=== PATIENT | female | born 1970 | race Caucasian/White ===

== ENCOUNTER 2020-01-29 13:04 | Emergency (ER) | payer OTHER ==
[2020-01-29 13:39] VITALS: O2SAT 97
[2020-01-29] MEDS ORDERED: Sodium Chloride 0.9% 1000 ML 1,000 ML IV SCH (13:45)
[2020-01-29 13:58] LABS: A-aADO2 4; ABG HEMOGLOBIN 15.3; ABG POTASSIUM 4.1 (3.5-5.1); ARTERIAL BLD GAS O2 SATURATION 98.3 % (95-100); ARTERIAL BLOOD GAS BASE EXCESS 6.9 (-2.0-2.0); ARTERIAL BLOOD GAS FIO2 21 %; ARTERIAL BLOOD GAS PCO2 46 mmHg (35-45); ARTERIAL BLOOD GAS PO2 88 mmHg (75-100); ARTERIAL BLOOD GAS pH 7.45 (7.35-7.45); HGB O2 SAT 90.4 g/dF (94-100); Lactic Acid 0.8 (0.4-2.0); Methhemoglobin 1.1 % (1.4-1.5); paO2 pAO1 0.96
[2020-01-29 13:59] LABS: ABG SITE RIGHT BRACHIAL
[2020-01-29] MEDS ORDERED: Sodium Chloride 0.9% 1000 ML 1,000 ML ONE (14:11)
--- NOTE | 2020-01-29 14:11 | ERPHSYRPT ---
- History of Present Illness Time Seen by Provider: 01/29/20 14:09 Source: patient Exam Limitations: no limitations Patient Subjective Stated Complaint: Cough Triage Nursing Assessment: , Patient ambulated back to ED and transferred self to bed. Patient A+O X3. Patient's skin pink, warm and dry. Patient complains of cough, increased SOB, body aches for two weeks. Patient has tested Negative for Covid in the past two weeks, but her is positive. Lungs clear a/p sheryl. Patient complains of non productive intermittent cough at times. Physician History: Patient complains of cough, increased SOB, body aches for two weeks. Patient has tested Negative for Covid in the past two weeks, but her is positive. Lungs clear a/p sheryl. Patient complains of non productive intermittent cough at times. Timing/Duration: week(s) Cough Quality/Degree: dry cough Associated Symptoms: shortness of breath, sore throat Allergies/Adverse Reactions: No Known Drug Allergies Allergy (Unverified 01/29/20 13:29) Hx Influenza Vaccination/Date Given: No Hx Pneumococcal Vaccination/Date Given: No Immunizations Up to Date: Yes Travel Risk - International Travel Have you traveled outside of the country in past 3 weeks: No - Coronavirus Screening Are you exhibiting any of the following symptoms?: Yes Symptoms: Cough: New Onset, Shortness of Breath, Headaches/Body Aches/Fatigue Close contact with a COVID-19 positive Pt in past 14-21 Days: Yes - Review of Systems Constitutional: Malaise Ears, Nose, & Throat: Throat Pain Respiratory: Cough Cardiac: No Symptoms Abdominal/Gastrointestinal: No Symptoms Genitourinary Symptoms: No Symptoms Musculoskeletal: No Symptoms Neurological: No Symptoms Psychological: No Symptoms Endocrine: No Symptoms - Past Medical History Pertinent Past Medical History: Yes Neurological History: No Pertinent History ENT History: No Pertinent History Female Reproductive Disorders: Breast Cancer - Past Surgical History Past Surgical History: Yes Neuro Surgical History: No Pertinent History Cardiac: No Pertinent History Respiratory: No Pertinent History Gastrointestinal: No Pertinent History Genitourinary: No Pertinent History Musculoskeletal: No Pertinent History Female Surgical History: Hysterectomy, Lumpectomy Other Surgical History: bladder sling - Social History Smoking Status: Current every day smoker How long have you smoked: years Exposure to second hand smoke: Yes Drug Use: marijuana Patient Lives Alone: No - Female History Hx Last Menstrual Period: hysterctomy Hx Now: No - Nursing Vital Signs Nursing Vital Signs: Initial Vital Signs Temperature 98.7 F 01/29/20 13:31 Pulse Rate 98 H 01/29/20 13:31 Respiratory Rate 18 01/29/20 13:31 Blood Pressure 163/113 01/29/20 13:31 O2 Sat by Pulse Oximetry 97 01/29/20 13:31 Pain Scale Pain Intensity 6 - Physical Exam General Appearance: no apparent distress, alert Eye Exam: PERRL/EOMI, eyes nml inspection Ears, Nose, Throat Exam: normal ENT inspection, TMs normal, pharynx normal, moist mucous membranes Neck Exam: normal inspection, non-tender, supple, full range of motion Respiratory Exam: normal breath sounds, lungs clear, No respiratory distress Cardiovascular Exam: regular rate/rhythm, normal heart sounds Gastrointestinal/Abdomen Exam: soft, No tenderness Back Exam: normal inspection, No CVA tenderness, No vertebral tenderness Extremity Exam: normal inspection, normal range of motion Neurologic Exam: alert, oriented x 3, cooperative, normal mood/affect, sensation nml, No motor deficits Skin Exam: normal color, warm, dry, No rash Lymphatic Exam: No adenopathy SpO2: 97 - Course Nursing assessment & vital signs reviewed: Yes Ordered Tests: Active Orders 24 hr Category Date Time Status EKG-ER Only STAT Care 01/29/20 13:36 Active IV Insertion STAT Care 01/29/20 14:07 Active Oxygen-ED Only Nasal Cannula 2 lpm Care 01/29/20 13:36 Active Pulse Oximetry (ED) STAT Care 01/29/20 14:08 Active CHEST 1 VIEW (PORTABLE) Stat Exams 01/29/20 14:02 Taken ARTERIAL BLOOD GASES Stat Lab 01/29/20 13:36 Completed CBC W DIFF Stat Lab 01/29/20 13:36 Completed CMP Stat Lab 01/29/20 13:36 Completed D-DIMER QUANTITATIVE Stat Lab 01/29/20 13:36 Completed Lactic Acid Stat Lab 01/29/20 13:36 Completed MAGNESIUM Stat Lab 01/29/20 13:36 Completed Medication Summary Generic Name Dose Route Start Last Admin Trade Name Freq PRN Reason Stop Dose Admin Sodium Chloride 1,000 mls @ 100 mls/hr 01/29/20 13:45 01/29/20 14:12 Sodium Chloride 0.9% 1000 Ml IV 11/17/20 13:44 100 mls/hr .Q10H ALEXI Administration Lab/Rad Data: Laboratory Result Diagrams 01/29/20 13:36 01/29/20 13:36 Laboratory Results 01/29/20 01/29/20 01/29/20 Range/Units 15:00 13:36 13:36 WBC (4.0-10.5) K/mm3 RBC (4.1-5.4) M/mm3 Hgb (12.0-16.0) gm/dl Hct (35-47) % MCV (78-100) fl MCH (26-32) pg MCHC (32-36) g/dl RDW (11.5-14.0) % Plt Count (150-450) K/mm3 MPV (7.5-11.0) fl Gran % (36.0-66.0) % Eos # (Auto) (0-0.5) Absolute Lymphs (auto) (1.0-4.6) Absolute Monos (auto) (0.0-1.3) Lymphocytes % (24.0-44.0) % Monocytes % (0.0-12.0) % Eosinophils % (0.00-5.0) % Basophils % (0.0-0.4) % Absolute Granulocytes (1.4-6.9) Basophils # (0-0.4) D-Dimer 281 (215-500) ng/mL Puncture Site pCO2 (35-45) mmHg pO2 (75-100) mmHg Base Excess (-2.0-2.0) O2 Saturation (94-100) g/dF ABG pH (7.35-7.45) ABG HCO3 (22-28) ABG O2 Sat (Measured) (95-100) % Khris Test A-a Gradient a/A Ratio Hemoglobin Carboxyhemoglobin (0.0-6.9) % THgb Methemoglobin (1.4-1.5) % Potassium 3.9 (3.5-5.1) Temperature C POC O2 Flow Rate % Sodium 134 L (137-145) mmol/L Chloride 103 (98-107) mmol/L Carbon Dioxide 27 (22-30) mmol/L Anion Gap 8.1 (5-15) MEQ/L BUN 13 (7-17) mg/dL Creatinine 0.71 (0.52-1.04) mg/dL Estimated GFR > 60.0 ML/MIN Glucose 98 (74-106) mg/dL Lactic Acid (0.4-2.0) Calcium 9.1 (8.4-10.2) mg/dL Magnesium 2.1 (1.6-2.3) mg/dL Total Bilirubin 0.30 (0.2-1.3) mg/dL AST 23 (14-36) U/L ALT 20 (0-35) U/L Alkaline Phosphatase 66 (38-126) U/L Serum Total Protein 6.9 (6.3-8.2) g/dL Albumin 4.0 (3.5-5.0) g/dL Influenza Type A Ag NEGATIVE (NEGATIVE) Influenza Type B Ag NEGATIVE (NEGATIVE) RSV (PCR) NEGATIVE (Negative) 01/29/20 01/29/20 Range/Units 13:36 13:36 WBC 9.0 (4.0-10.5) K/mm3 RBC 4.59 (4.1-5.4) M/mm3 Hgb 14.2 (12.0-16.0) gm/dl Hct 42.6 (35-47) % MCV 92.8 (78-100) fl MCH 30.9 (26-32) pg MCHC 33.3 (32-36) g/dl RDW 13.2 (11.5-14.0) % Plt Count 213 (150-450) K/mm3 MPV 9.6 (7.5-11.0) fl Gran % 66.2 H (36.0-66.0) % Eos # (Auto) 0.21 (0-0.5) Absolute Lymphs (auto) 2.15 (1.0-4.6) Absolute Monos (auto) 0.65 (0.0-1.3) Lymphocytes % 23.9 L (24.0-44.0) % Monocytes % 7.2 (0.0-12.0) % Eosinophils % 2.3 (0.00-5.0) % Basophils % 0.4 (0.0-0.4) % Absolute Granulocytes 5.94 (1.4-6.9) Basophils # 0.04 (0-0.4) D-Dimer (215-500) ng/mL Puncture Site RIGHT BRACHIAL pCO2 46 H (35-45) mmHg pO2 88 (75-100) mmHg Base Excess 6.9 H (-2.0-2.0) O2 Saturation 90.4 L (94-100) g/dF ABG pH 7.45 (7.35-7.45) ABG HCO3 32.0 H* (22-28) ABG O2 Sat (Measured) 98.3 (95-100) % Khris Test NOT APPLICABLE A-a Gradient 4 a/A Ratio 0.96 Hemoglobin 15.3 Carboxyhemoglobin 7.0 H* (0.0-6.9) % THgb Methemoglobin 1.1 L (1.4-1.5) % Potassium 4.1 (3.5-5.1) Temperature 37.0 C POC O2 Flow Rate 21 % Sodium (137-145) mmol/L Chloride (98-107) mmol/L Carbon Dioxide (22-30) mmol/L Anion Gap (5-15) MEQ/L BUN (7-17) mg/dL Creatinine (0.52-1.04) mg/dL Estimated GFR ML/MIN Glucose (74-106) mg/dL Lactic Acid 0.8 (0.4-2.0) Calcium (8.4-10.2) mg/dL Magnesium (1.6-2.3) mg/dL Total Bilirubin (0.2-1.3) mg/dL AST (14-36) U/L ALT (0-35) U/L Alkaline Phosphatase (38-126) U/L Serum Total Protein (6.3-8.2) g/dL Albumin (3.5-5.0) g/dL Influenza Type A Ag (NEGATIVE) Influenza Type B Ag (NEGATIVE) RSV (PCR) (Negative) - Progress Progress: unchanged Air Movement: good Blood Culture(s) Obtained: No Antibiotics given: No Counseled pt/family regarding: lab results, diagnosis, need for follow-up, rad results - Departure Departure Disposition: Home Clinical Impression: Post viral syndrome, Post-viral cough syndrome Condition: Stable Critical Care Time: No Referrals: JESSICA SHERIDAN [Primary Care Provider] - Instructions: Cough, Adult (DC) Additional Instructions: Discharge/Care Plan ANNE MARIE BERTRAND was seen on 01/29/20 in the Emergency Room. The patient was counseled regarding Diagnosis,Lab results, Imaging studies, need for follow up and when to return to the Emergency Room. Prescriptions given: Discharge Note I have spoken with the patient and/or caregivers. I have explained the patient's condition, diagnosis and treatment plan based on the information available to me at this time. I have answered the patient's and/or caregiver's questions and addressed any concerns. The patient and/or caregivers have as good understanding of the patient's diagnosis, condition and treatment plan as can be expected at this point. The vital signs have been stable. The patient's condition is stable and appropriate for discharge from the emergency department. The patient will pursue further outpatient evaluation with the primary care physician or other designated or consulting physician as outlined in the discharge instructions. The patient and/or caregivers are agreeable to this plan of care and follow-up instructions have been explained in detail. The patient and/or caregivers have received these instruction. The patient/and or caregivers are aware that any significant change in condition or worsening of symptoms should prompt an immediate return to this or the closest emergency department or call 911. ANNE MARIE BERTRAND was seen on 01/29/20 n the Emergency Room. At that time you were treated for an emergent condition, during your visit Laboratory, Radiology and/or other procedures may have been ordered. It is very important that you follow-up with your Primary Care Physician JESSICA SHERIDAN within the next 24-48 hours to review your Emergency Room visit and the final results of testing that was ordered. Some test results such as Urine Cultures, Blood Cultures, and other cultures if ordered will not be finalized for 24-48 hours. If you do not have a Primary Care Provider please call the medical records d kristyn at [phone] ext [phone] to obtain a copy of your results or you may sign into our patient portal to obtain these results by visiting us @ [email or web address] and completing the following steps: 1. Click on the Patient Portal link 2. Click the Patient Self Enrollment Link to complete the enrollment form and entering your 3. Once the enrollment form is completed you will receive an email with a temporary ID and password at the email address you provided. 4. Next choose a user name and password. Your user name must be at least 4 characters long and your password must be at least 4 characters long. 5. Choose a security question from the list and provide your answer to the question. If you already have signed into the Health Portal you may access your Health Care Information 03/11 by the following steps: 1. Login to our website @ [email or web address] 2. Enter your original user name and password. FAQS The [facility] Portal is an online tool that contains your Lab Results, Radiology Reports, Visit History, Discharge Instructions and Health Summary Lab and Radiology Results will not be available for 72 hours on the portal. The Portal is a secure site, passwords are encryted and URLs are re-written so they cannot be copied and pasted. You and authorized family members are the only ones who can access your Portal. Also there is a timeout feature that protects your information if you leave the Portal page open. If you have technical difficulty please use the Contact Us link on the page this will allow you to submit any questions you have regarding the Portal or you may contact the Medical Record Department at [phone]. Prescriptions: Prednisone 5 mg [Deltasone 5 mg] 5 mg PO BID #30 tablet
[2020-01-29 14:45] LABS: Absolute Neutrophil Ct (ANC) 5.94 (1.4-6.9); BASOPHIL % 0.4 % (0.0-0.4); Basophil (Absolute #) 0.04 (0-0.4); Eosinophil % 2.3 % (0.00-5.0); Eosinophil (Absolute #) 0.21 (0-0.5); Hematocrit 42.6 % (35-47); Hemoglobin 14.2 gm/dl (12.0-16.0); Lymphocyte (Absolute #) 2.15 (1.0-4.6); Lymphocytes % 23.9 % (24.0-44.0); Mean Cell Volume 92.8 fl (78-100); Mean Corpuscular Hemoglobin 30.9 pg (26-32); Mean Corpuscular Hgb Concent. 33.3 g/dl (32-36); Mean Platelet Volume 9.6 fl (7.5-11.0); Monocyte (Absolute #) 0.65 (0.0-1.3); Monocytes % 7.2 % (0.0-12.0); Neutrophil % 66.2 % (36.0-66.0); Platelet Count 213 K/mm3 (150-450); Red Blood Count 4.59 M/mm3 (4.1-5.4); Red Cell Distribution Width 13.2 % (11.5-14.0)
[2020-01-29 14:56] LABS: ALKALINE PHOSPHATASE 66 U/L (38-126); ANION GAP 8.1 MEQ/L (5-15); BLOOD UREA NITROGEN 13 mg/dL (7-17); CHLORIDE 103 mmol/L (98-107); Calcium 9.1 mg/dL (8.4-10.2); Carbon Dioxide 27 mmol/L (22-30); Creatinine 1 0.71 mg/dL (0.52-1.04); EST GLOMERULAR FILTRATION RATE > 60.0 ML/MIN; Glucose 98 mg/dL (74-106); MAGNESIUM 2.1 mg/dL (1.6-2.3); Potassium 3.9 mmol/L (3.5-5.1); SGOT/AST 23 U/L (14-36); SGPT/ALT 20 U/L (0-35); SODIUM 134 mmol/L (137-145); Total Protein 6.9 g/dL (6.3-8.2)
[2020-01-29 15:16] LABS: INFLUENZA A NEGATIVE (NEGATIVE); INFLUENZA B NEGATIVE (NEGATIVE); RESPIRATORY SYNCTIAL VIRUS NEGATIVE (Negative)
[2020-01-29 15:49] VITALS: BP 110/80; PULSE 75
--- NOTE | 2020-01-29 20:40 | XRAY ---
Indication: Cough. Covid 19 exposure. Comparison: December 02, 2017. Portable chest again hyperinflated with minimal lingula subsegmental atelectasis/scarring. No focal infiltrate, consolidation, or large effusion. Heart and mediastinal structures within normal limits. Bony thorax intact. Impression: Nonacute chest with chronic features. Impression:
== END 2020-01-29 15:51 | disposition home or self-care (01) ==
LOC: ED 13:04
DX: G93.3 Postviral and related fatigue syndromes (principal); R05 Cough
CPT/HCPCS: 36000; 36415; 36600; 71045; 80053; 82375; 82803; 83605; 83735; 85025; 85379; 87631; 93005; 94760; 96360; 96361; 99284

== ENCOUNTER 2021-08-18 11:59 | Emergency (ER) | payer OTHER ==
[2021-08-18] MEDS ORDERED: Sodium Chloride 0.9% 1000 ML 1,000 ML ONE (12:28)
--- NOTE | 2021-08-18 12:28 | ERPHSYRPT ---
- History of Present Illness Source: patient Exam Limitations: no limitations Patient Subjective Stated Complaint: SOB Triage Nursing Assessment: Patient ambulated back to ED and transferred self to bed. Patient A+O X 3. Patient's skin pink, warm and dry. Patient complains of SOB, cough, fever, and weakness since last thursday. Patient reports non productive cough. Lungs clear a/p sheryl. Patient reports desatting while working around. Physician History: 51 yo wf w cough x8days/fever/mild dyspnea/pleuritic chest pain/coryza. Pt has exposure to FluA. She was given Tessalon Perles per virtual visit. Timing/Duration: other (8 days) Cough Quality/Degree: dry cough Possible Cause: occasional episodes Modifying Factors: Improves With: coughing Associated Symptoms: fever, chills, cough, muscle aches Allergies/Adverse Reactions: No Known Drug Allergies Allergy (Verified 08/18/21 12:01) Home Medications: No Reportable Medications [No Reported Medications] 08/18/21 [History] Hx Influenza Vaccination/Date Given: No Hx Pneumococcal Vaccination/Date Given: No Immunizations Up to Date: No Travel Risk - International Travel Have you traveled outside of the country in past 3 weeks: No - Coronavirus Screening Are you exhibiting any of the following symptoms?: No Close contact with a COVID-19 positive Pt in past 14-21 Days: No - Vaccine Status Have you recieved a Covid-19 vaccination: Yes 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[employer] - Vaccination Dates Date of 2cond Vaccination (if applicable): July 2020 Comment: Booster March 2021 - Review of Systems Constitutional: No Symptoms, Fever, Chills, Fatigue Eyes: No Symptoms Ears, Nose, & Throat: No Symptoms, Nose Congestion, Nose Discharge Respiratory: No Symptoms, Cough, Dyspnea, Dyspnea on Exertion (DE LEON) Cardiac: No Symptoms Abdominal/Gastrointestinal: No Symptoms Genitourinary Symptoms: No Symptoms Musculoskeletal: No Symptoms, Arthralgias, Myalgias Skin: No Symptoms Neurological: No Symptoms Psychological: No Symptoms Endocrine: No Symptoms Hematologic/Lymphatic: No Symptoms Immunological/Allergic: No Symptoms - Past Medical History Pertinent Past Medical History: Yes Neurological History: No Pertinent History ENT History: No Pertinent History Cardiac History: Arrhythmia, High Cholesterol Respiratory History: No Pertinent History Endocrine Medical History: No Pertinent History Musculoskeletal History: Degenerative Disk Disease, Osteoarthritis, Other Female Reproductive Disorders: Breast Cancer Other Medical History: BREAST CANCER 2013, HX OF PLANTAR FASCITIS. OSTEOPENIA. SX HX: CERVICAL FUSION C5-7 2014, LUMPECTOMY LEFT 2012 - Past Surgical History Past Surgical History: Yes Neuro Surgical History: No Pertinent History Cardiac: No Pertinent History Respiratory: No Pertinent History Gastrointestinal: No Pertinent History Genitourinary: No Pertinent History Musculoskeletal: No Pertinent History Female Surgical History: Hysterectomy, Lumpectomy Other Surgical History: bladder sling - Social History Smoking Status: Current every day smoker How long have you smoked: years Exposure to second hand smoke: Yes Drug Use: marijuana Patient Lives Alone: No Significant Family History: no pertinent family hx - Nursing Vital Signs Nursing Vital Signs: Initial Vital Signs Temperature 97.6 F 08/18/21 12:02 Pulse Rate 89 08/18/21 12:02 Respiratory Rate 18 08/18/21 12:02 Blood Pressure 164/114 08/18/21 12:02 O2 Sat by Pulse Oximetry 96 08/18/21 12:02 Pain Scale Pain Intensity 0 Hypertensive - Physical Exam General Appearance: no apparent distress Eye Exam: PERRL/EOMI, eyes nml inspection Ears, Nose, Throat Exam: normal ENT inspection, TMs normal, pharynx normal, moist mucous membranes Neck Exam: normal inspection, non-tender, supple, full range of motion, No meningismus, No mass, No Brudzinski, No Kernig's Cardiovascular Exam: regular rate/rhythm, normal heart sounds, normal peripheral pulses, capillary refill <2 sec, No murmur Gastrointestinal/Abdomen Exam: soft, normal bowel sounds, No tenderness Back Exam: normal inspection, normal range of motion, CVA tenderness, vertebral tenderness Extremity Exam: normal inspection, normal range of motion Neurologic Exam: alert, oriented x 3, cooperative, 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, normal mood/affect, nml cerebellar function, nml station & gait, sensation nml Skin Exam: normal color, warm, dry Lymphatic Exam: No adenopathy SpO2 Interpretation: normal SpO2: 96 O2 Delivery: Room Air - Course Nursing assessment & vital signs reviewed: Yes - Radiology Exams Chest X-ray Interpretation: Interpreted by me (NAD per ER read) Ordered Tests: Active Orders 24 hr Category Date Time Status IV Insertion STAT Care 08/18/21 12:11 Completed CHEST 1 VIEW (PORTABLE) Stat Exams 08/18/21 12:11 Taken CBC W DIFF Stat Lab 08/18/21 12:05 Completed CMP Stat Lab 08/18/21 12:05 Completed Lactic Acid Stat Lab 08/18/21 12:12 Completed Manual Differential NC Stat Lab 08/18/21 12:05 Completed NT PRO BNP Stat Lab 08/18/21 12:05 Completed PROTIME WITH INR Stat Lab 08/18/21 12:05 Completed PTT Stat Lab 08/18/21 12:05 Completed TROPONIN Q3H Lab 08/18/21 12:05 Completed UA W/RFX CULTURE Stat Lab 08/18/21 13:18 Completed Medication Summary Discontinued Medications Generic Name Dose Route Start Last Admin Trade Name Freq PRN Reason Stop Dose Admin Sodium Chloride 1,000 mls @ 999 mls/hr 08/18/21 12:27 08/18/21 13:57 Sodium Chloride 0.9% 1000 Ml IV 08/18/21 13:27 Infused .Q1H1M STA Infusion Sodium Chloride Confirm 08/18/21 12:28 Sodium Chloride 0.9% 1000 Ml Administered 08/18/21 12:29 Dose 1,000 mls @ ud .ROUTE .STK-MED ONE Ketorolac Tromethamine 30 mg 08/18/21 13:25 08/18/21 13:27 Ketorolac Tromethamine 30 Mg/Ml Inj IV 08/18/21 13:26 30 mg STAT ONE Administration Ketorolac Tromethamine Confirm 08/18/21 13:26 Ketorolac Tromethamine 30 Mg/Ml Inj Administered 08/18/21 13:27 Dose 30 mg .ROUTE .STK-MED ONE Lab/Rad Data: Laboratory Result Diagrams 08/18/21 12:05 08/18/21 12:05 Laboratory Results 08/18/21 08/18/21 08/18/21 Range/Units 13:18 12:28 12:12 WBC (4.0-10.5) K/mm3 RBC (4.1-5.4) M/mm3 Hgb (12.0-16.0) gm/dl Hct (35-47) % MCV (78-100) fl MCH (26-32) pg MCHC (32-36) g/dl RDW (11.5-14.0) % Plt Count (150-450) K/mm3 MPV (7.5-11.0) fl Segmented Neutrophils (36.0-66.0) % Lymphocytes (Manual) (24-44) % Monocytes (Manual) (0.0-12.0) % Platelet Estimate (NORMAL) RBC Morphology PT (9.4-12.5) SECONDS INR (0.8-3.0) APTT (25.1-36.5) SECONDS Sodium (137-145) mmol/L Potassium (3.5-5.1) mmol/L Chloride (98-107) mmol/L Carbon Dioxide (22-30) mmol/L Anion Gap (5-15) MEQ/L BUN (7-17) mg/dL Creatinine (0.52-1.04) mg/dL Estimated GFR ML/MIN Glucose (74-106) mg/dL Lactic Acid 1.4 (0.4-2.0) Calcium (8.4-10.2) mg/dL Total Bilirubin (0.2-1.3) mg/dL AST (14-36) U/L ALT (0-35) U/L Alkaline Phosphatase (38-126) U/L Troponin I (0.000-0.034) ng/mL NT-Pro-B Natriuret Pep (0-900) pg/mL Serum Total Protein (6.3-8.2) g/dL Albumin (3.5-5.0) g/dL Urinalys Dipstick Clnc MAIN LAB Urine Color YELLOW (YELLOW) Urine Appearance CLEAR (CLEAR) Urine pH 6.0 (5-6) Ur Specific [place] 1.015 (1.005-1.025) POC Urine Protein Conf NEGATIVE (Negative) Urine Ketones NEGATIVE (NEGATIVE) Urine Nitrite NEGATIVE (NEGATIVE) Urine Bilirubin NEGATIVE (NEGATIVE) Urine Urobilinogen 0.2 (0-1) mg/dL Urine Leukocytes NEGATIVE (NEGATIVE) Urine WBC (Auto) 0-2 (0-5) /HPF Urine RBC (Auto) 0-2 (0-2) /HPF U Epithel Cells (Auto) RARE (FEW) /HPF Urine Bacteria (Auto) NONE (NEGATIVE) /HPF Urine RBC SMALL (0-5) Daniel/ul Unidentified Crystals 2-5 (NEGATIVE) /HPF Ur Culture Indicated? NO Urine Glucose NEGATIVE (NEGATIVE) mg/dL Influenza Type A Ag POSITIVE (NEGATIVE) Influenza Type B Ag NEGATIVE (NEGATIVE) RSV (PCR) NEGATIVE (Negative) SARS-CoV-2 (PCR) NEGATIVE (NEGATIVE) 08/18/21 08/18/21 08/18/21 Range/Units 12:05 12:05 12:05 WBC (4.0-10.5) K/mm3 RBC (4.1-5.4) M/mm3 Hgb (12.0-16.0) gm/dl Hct (35-47) % MCV (78-100) fl MCH (26-32) pg MCHC (32-36) g/dl RDW (11.5-14.0) % Plt Count (150-450) K/mm3 MPV (7.5-11.0) fl Segmented Neutrophils (36.0-66.0) % Lymphocytes (Manual) (24-44) % Monocytes (Manual) (0.0-12.0) % Platelet Estimate (NORMAL) RBC Morphology PT 10.8 (9.4-12.5) SECONDS INR 0.92 (0.8-3.0) APTT 27.8 (25.1-36.5) SECONDS Sodium 135 L (137-145) mmol/L Potassium 3.6 (3.5-5.1) mmol/L Chloride 100 (98-107) mmol/L Carbon Dioxide 27 (22-30) mmol/L Anion Gap 11.9 (5-15) MEQ/L BUN 11 (7-17) mg/dL Creatinine 0.63 (0.52-1.04) mg/dL Estimated GFR > 60.0 ML/MIN Glucose 96 (74-106) mg/dL Lactic Acid (0.4-2.0) Calcium 8.8 (8.4-10.2) mg/dL Total Bilirubin 0.80 (0.2-1.3) mg/dL AST 82 H (14-36) U/L ALT 94 H (0-35) U/L Alkaline Phosphatase 109 (38-126) U/L Troponin I < 0.012 (0.000-0.034) ng/mL NT-Pro-B Natriuret Pep 431 (0-900) pg/mL Serum Total Protein 7.3 (6.3-8.2) g/dL Albumin 4.2 (3.5-5.0) g/dL Urinalys Dipstick Clnc Urine Color (YELLOW) Urine Appearance (CLEAR) Urine pH (5-6) Ur Specific [place] (1.005-1.025) POC Urine Protein Conf (Negative) Urine Ketones (NEGATIVE) Urine Nitrite (NEGATIVE) Urine Bilirubin (NEGATIVE) Urine Urobilinogen (0-1) mg/dL Urine Leukocytes (NEGATIVE) Urine WBC (Auto) (0-5) /HPF Urine RBC (Auto) (0-2) /HPF U Epithel Cells (Auto) (FEW) /HPF Urine Bacteria (Auto) (NEGATIVE) /HPF Urine RBC (0-5) Daniel/ul Unidentified Crystals (NEGATIVE) /HPF Ur Culture Indicated? Urine Glucose (NEGATIVE) mg/dL Influenza Type A Ag (NEGATIVE) Influenza Type B Ag (NEGATIVE) RSV (PCR) (Negative) SARS-CoV-2 (PCR) (NEGATIVE) 08/18/21 Range/Units 12:05 WBC 7.6 (4.0-10.5) K/mm3 RBC 4.99 (4.1-5.4) M/mm3 Hgb 15.3 (12.0-16.0) gm/dl Hct 44.7 (35-47) % MCV 89.6 (78-100) fl MCH 30.7 (26-32) pg MCHC 34.2 (32-36) g/dl RDW 13.1 (11.5-14.0) % Plt Count 181 (150-450) K/mm3 MPV 10.6 (7.5-11.0) fl Segmented Neutrophils 71 H (36.0-66.0) % Lymphocytes (Manual) 21 L (24-44) % Monocytes (Manual) 8 (0.0-12.0) % Platelet Estimate NORMAL (NORMAL) RBC Morphology NORMAL PT (9.4-12.5) SECONDS INR (0.8-3.0) APTT (25.1-36.5) SECONDS Sodium (137-145) mmol/L Potassium (3.5-5.1) mmol/L Chloride (98-107) mmol/L Carbon Dioxide (22-30) mmol/L Anion Gap (5-15) MEQ/L BUN (7-17) mg/dL Creatinine (0.52-1.04) mg/dL Estimated GFR ML/MIN Glucose (74-106) mg/dL Lactic Acid (0.4-2.0) Calcium (8.4-10.2) mg/dL Total Bilirubin (0.2-1.3) mg/dL AST (14-36) U/L ALT (0-35) U/L Alkaline Phosphatase (38-126) U/L Troponin I (0.000-0.034) ng/mL NT-Pro-B Natriuret Pep (0-900) pg/mL Serum Total Protein (6.3-8.2) g/dL Albumin (3.5-5.0) g/dL Urinalys Dipstick Clnc Urine Color (YELLOW) Urine Appearance (CLEAR) Urine pH (5-6) Ur Specific [place] (1.005-1.025) POC Urine Protein Conf (Negative) Urine Ketones (NEGATIVE) Urine Nitrite (NEGATIVE) Urine Bilirubin (NEGATIVE) Urine Urobilinogen (0-1) mg/dL Urine Leukocytes (NEGATIVE) Urine WBC (Auto) (0-5) /HPF Urine RBC (Auto) (0-2) /HPF U Epithel Cells (Auto) (FEW) /HPF Urine Bacteria (Auto) (NEGATIVE) /HPF Urine RBC (0-5) Daniel/ul Unidentified Crystals (NEGATIVE) /HPF Ur Culture Indicated? Urine Glucose (NEGATIVE) mg/dL Influenza Type A Ag (NEGATIVE) Influenza Type B Ag (NEGATIVE) RSV (PCR) (Negative) SARS-CoV-2 (PCR) (NEGATIVE) - Progress Progress: improved Air Movement: good Progress Note: 08/18/21 13:34 1L NS bolus 30mg IV Toradol 08/18/21 18:01 Pt out of window for Tamiflu Counseled pt/family regarding: lab results, diagnosis, need for follow-up, rad results - Departure Departure Disposition: Home Clinical Impression: Influenza A Condition: Stable Critical Care Time: No Referrals: JESSICA SHERIDAN [Primary Care Provider] - Follow up/PCP as directed Instructions: Flu, Adult (DC) Additional Instructions: Rest/Fluids/Motrin/Tylenol Follow up with your family MD as needed
[2021-08-18] MEDS: Sodium Chloride 0.9% 1000 ML 1,000 ML IV STA (12:29)
[2021-08-18 12:35] LABS: Hematocrit 44.7 % (35-47); Hemoglobin 15.3 gm/dl (12.0-16.0); Mean Cell Volume 89.6 fl (78-100); Mean Corpuscular Hemoglobin 30.7 pg (26-32); Mean Corpuscular Hgb Concent. 34.2 g/dl (32-36); Mean Platelet Volume 10.6 fl (7.5-11.0); Platelet Count 181 K/mm3 (150-450); Red Blood Count 4.99 M/mm3 (4.1-5.4); Red Cell Distribution Width 13.1 % (11.5-14.0); White Blood Count 7.6 K/mm3 (4.0-10.5)
[2021-08-18 12:37] LABS: INR 0.92 (0.8-3.0); PROTIME 10.8 SECONDS (9.4-12.5)
[2021-08-18 12:40] LABS: PTT 27.8 SECONDS (25.1-36.5)
[2021-08-18 12:52] LABS: ALBUMIN 4.2 g/dL (3.5-5.0); ALKALINE PHOSPHATASE 109 U/L (38-126); ANION GAP 11.9 MEQ/L (5-15); BLOOD UREA NITROGEN 11 mg/dL (7-17); CHLORIDE 100 mmol/L (98-107); Calcium 8.8 mg/dL (8.4-10.2); Carbon Dioxide 27 mmol/L (22-30); Creatinine 1 0.63 mg/dL (0.52-1.04); EST GLOMERULAR FILTRATION RATE > 60.0 ML/MIN; Glucose 96 mg/dL (74-106); NT PRO BNP 431 pg/mL (0-900); Potassium 3.6 mmol/L (3.5-5.1); SGOT/AST 82 U/L (14-36); SGPT/ALT 94 U/L (0-35); SODIUM 135 mmol/L (137-145); Total Protein 7.3 g/dL (6.3-8.2)
[2021-08-18 13:13] LABS: INFLUENZA B NEGATIVE (NEGATIVE); RESPIRATORY SYNCTIAL VIRUS NEGATIVE (Negative); SARS-CoV-2 Xpert Express NEGATIVE (NEGATIVE)
[2021-08-18 13:18] LABS: INFLUENZA A POSITIVE (NEGATIVE)
[2021-08-18] MEDS ORDERED: TORAdol 30 mg Injection ONE (13:26)
[2021-08-18] MEDS: TORAdol 30 mg Injection IV ONE (13:27)
[2021-08-18 13:37] VITALS: O2SAT 96
[2021-08-18 13:55] LABS: Epithelial Cells RARE /HPF (FEW); RBC 0-2 /HPF (0-2); WBC 0-2 /HPF (0-5)
[2021-08-18 13:56] LABS: Appearance CLEAR (CLEAR); Bilirubin NEGATIVE (NEGATIVE); Glucose NEGATIVE (NEGATIVE); Ketones NEGATIVE (NEGATIVE); Nitrite NEGATIVE (NEGATIVE); Protein,Urine Dip NEGATIVE (Negative); RBC SMALL Ery/ul (0-5); Specific Gravity 1.015 (1.005-1.025); Urobilinogen 0.2 mg/dL (0-1)
[2021-08-18 13:58] LABS: Dipstick done @ ? MAIN LAB; Urine Cultured Indicated? NO
[2021-08-18 14:14] VITALS: BP 148/92; PULSE 80
[2021-08-18 15:14] LABS: Lymphocytes 21 % (24-44); Monocyte 8 % (0.0-12.0); Platelet Estimate NORMAL (NORMAL); Total Cells Counted 100
--- NOTE | 2021-08-18 21:15 | XRAY ---
Indication: Cough. Flu. Comparison: January 28. Portable chest remains hyperinflated and clear. Heart not enlarged. Bony thorax intact with again partially visualized lower cervical fusion hardware. Impression: Nonacute chest.
== END 2021-08-18 14:20 | disposition home or self-care (01) ==
LOC: ED 11:59
DX: J10.1 Influenza due to other identified influenza virus with other respiratory manifestations (principal); R05.9 Cough, unspecified; R50.9 Fever, unspecified; R06.02 Shortness of breath; R07.89 Other chest pain; Z72.0 Tobacco use; Z20.828 Contact with and (suspected) exposure to other viral communicable diseases
CPT/HCPCS: 0241U; 36000; 36415; 71045; 80053; 81015; 83605; 83880; 84484; 85025; 85610; 85730; 96360; 96374; 99284; J1885

== ENCOUNTER 2021-10-17 21:54 | Emergency (ER) | payer OTHER ==
[2021-10-17 22:19] VITALS: O2SAT 96
--- NOTE | 2021-10-17 22:20 | ERPHSYRPT ---
- History of Present Illness Time Seen by Provider: 10/17/21 22:14 Source: patient Exam Limitations: no limitations Physician History: Patient is a 51-year-old female presents to our emergency department for evaluation of pain to her left leg. Patient states she was ambulating up towards a deck when a loose board pivoted upward causing the board to flip and strike her leg. Patient has a sizable bruise just distal to her left knee. Patient states she just started aspirin. Patient otherwise not on blood thinners. Patient also has an abrasion to her left hip. Patient states she has history of back surgery and has chronic numbness to her left leg. Patient decli mariya pain medication. No falls. No BHT or LOC. No neck pain. Cervical spine cleared clinically. Symptoms are mild to moderate in intensity. Palpation to the swollen area reproduces symptoms. No pain at her left knee left foot or left ankle. Patient is ambulatory with a normal gait pattern. Patient voices no other complaints or concerns at this time. Portions of this note were created with voice recognition technology. There may be grammatical, spelling, punctuation or sound alike errors Method of Injury: direct blow Occurred: just prior to arrival Quality: constant Severity of Pain-Max: moderate Severity of Pain-Current: mild Lower Extremities Pain: leg: left Modifying Factors: Improves With: other (Palpation to the area of involvement reproduces symptoms) Associated Symptoms: none Allergies/Adverse Reactions: No Known Drug Allergies Allergy (Verified 10/17/21 22:16) Home Medications: ALPRAZolam 0.25 MG [xanAX 0.25 MG] 0.5 mg PO BID 10/17/21 [History] Aspirin 81 gm Chew [Baby Aspirin 81 mg Chew] 1 dose PO DAILY 10/17/21 [History] Atorvastatin Calcium 1 dose PO DAILY 10/17/21 [History] Metoprolol Tartrate 25 mg [Lopressor 25MG Tab] 1 dose PO DAILY 10/17/21 [History] Hx Influenza Vaccination/Date Given: No Hx Pneumococcal Vaccination/Date Given: No Travel Risk - Vaccine Status Have you recieved a Covid-19 vaccination: Yes [facility] - Vaccination Dates Date of 2cond Vaccination (if applicable): July 2020 Comment: Booster March 2021 - Review of Systems Constitutional: No Symptoms, No Fever, No Chills Eyes: No Symptoms Ears, Nose, & Throat: No Symptoms Respiratory: No Symptoms, No Cough, No Dyspnea Cardiac: No Symptoms, No Chest Pain, No Edema, No Syncope Abdominal/Gastrointestinal: No Symptoms, No Abdominal Pain, No Nausea, No Vomiting, No Diarrhea Genitourinary Symptoms: No Symptoms, No Dysuria Musculoskeletal: No Symptoms, No Back Pain, No Neck Pain Skin: No Symptoms, No Rash Neurological: No Symptoms, No Dizziness, No Focal Weakness, No Sensory Changes Psychological: No Symptoms Endocrine: No Symptoms Hematologic/Lymphatic: No Symptoms Immunological/Allergic: No Symptoms All Other Systems: Reviewed and Negative - Past Medical History Pertinent Past Medical History: Yes Neurological History: No Pertinent History ENT History: No Pertinent History Cardiac History: Arrhythmia, High Cholesterol Respiratory History: No Pertinent History Endocrine Medical History: No Pertinent History Musculoskeletal History: Degenerative Disk Disease, Osteoarthritis, Other Female Reproductive Disorders: Breast Cancer Other Medical History: BREAST CANCER 2012, HX OF PLANTAR FASCITIS. OSTEOPENIA. SX HX: CERVICAL FUSION C5-7 2014, LUMPECTOMY LEFT 2012 - Past Surgical History Past Surgical History: Yes Neuro Surgical History: No Pertinent History Cardiac: No Pertinent History Respiratory: No Pertinent History Gastrointestinal: No Pertinent History Genitourinary: No Pertinent History Musculoskeletal: No Pertinent History Female Surgical History: Hysterectomy, Lumpectomy Other Surgical History: bladder sling - Social History Smoking Status: Current every day smoker How long have you smoked: years Exposure to second hand smoke: Yes Drug Use: marijuana Patient Lives Alone: No Significant Family History: no pertinent family hx - Nursing Vital Signs Nursing Vital Signs: Initial Vital Signs Temperature 98 F 10/17/21 22:05 Pulse Rate 101 H 10/17/21 22:05 Respiratory Rate 20 10/17/21 22:05 Blood Pressure 128/81 10/17/21 22:05 O2 Sat by Pulse Oximetry 98 10/17/21 22:05 Pain Scale Pain Intensity 6 - Physical Exam General Appearance: no apparent distress, alert Eyes, Ears, Nose, Throat Exam: normal ENT inspection, pharynx normal, moist mucous membranes, No dry mucous membranes Neck Exam: normal inspection, non-tender, supple, full range of motion Cardiovascular/Respiratory Exam: chest non-tender, normal breath sounds, regular rate/rhythm, heart sounds normal, no respiratory distress Gastrointestinal/Abdominal Exam: non-tender, soft, no organomegaly, no hernia, No guarding Back Exam: normal inspection, normal range of motion, No CVA tenderness, No vertebral tenderness Hips Exam: bilateral: non-tender, normal inspection, normal range of motion, no evidence of injury Legs Exam: right leg: non-tender, normal inspection, normal range of motion, no evidence of injury, left leg: soft tissue tenderness (Negative Homans' sign bilaterally), swelling (There is a hematoma to the proximal one third of the left tibia. No involvement of the left knee. Compartments are soft. Cap refill less than 2 seconds. PT DP pulse palpable.), other (Additionally there is a abrasion just to the antral lateral aspect of her left hip. There is no bony tenderness. Left hip range of motion is within normal limits. This abrasion is superficial and does not require wound care per se) Knees Exam: bilateral knee: non-tender, normal inspection, normal range of mo tion, no evidence of injury Ankle Exam: bilateral ankle: non-tender, normal inspection, normal range of motion, no evidence of injury Foot Exam: bilateral foot: non-tender, normal inspection, normal range of motion, no evidence of injury Neuro/Tendon Exam: normal sensation, normal motor functions Mental Status Exam: alert, oriented x 3, cooperative Skin Exam: normal color, warm, dry SpO2 Interpretation: normal SpO2: 96 O2 Delivery: Room Air - Course Nursing assessment & vital signs reviewed: Yes - Radiology Exams Lower Leg X-ray Interpretation: Interpreted by me (No fracture or dislocation. Soft tissue swelling proximal third of the left tibia.) Ordered Tests: Active Orders 24 hr Category Date Time Status LOWER LEG Stat Exams 10/17/21 22:13 Taken - Progress Progress: improved Progress Note: Patient reassessed. She is resting comfortably. Patient sleeping in the room. Ice packs applied to the involved area of the left leg. Patient declined additional pain medication. X-ray negative for fracture or dislocation. There is significant soft tissue swelling at the left proximal tibia area. Patient states she is ready for discharge. We will offer patient crutches upon discharge. Patient agrees to follow-up with primary care doctor within 48 hours for evaluation. She voices no other complaints or concerns at this time. Extremity neurovascular intact distally at time of discharge. [id number] oral analgesics as needed for pain control. Portions of this note were created with voice recognition technology. There may be grammatical, spelling, punctuation or sound alike errors 10/17/21 23:16 Counseled pt/family regarding: diagnosis, need for follow-up, rad results - Departure Departure Disposition: Home Clinical Impression: Hematoma of left lower leg Condition: Stable Critical Care Time: No Referrals: JESSICA SHERIDAN [Primary Care Provider] - Follow up/PCP as directed Additional Instructions: Discharge/Care Plan ANNE MARIE BERTRAND was seen on 10/17/21 in the Emergency Room. The patient was counseled regarding Diagnosis,Lab results, Imaging studies, need for follow up and when to return to the Emergency Room. Prescriptions given: Discharge Note I have spoken with the patient and/or caregivers. I have explained the patient's condition, diagnosis and treatment plan based on the information available to me at this time. I have answered the patient's and/or caregiver's questions and addressed any concerns. The patient and/or caregivers have as good understanding of the patient's diagnosis, condition and treatment plan as can be expected at this point. The vital signs have been stable. The patient's condition is stable and appropriate for discharge from the emergency department. The patient will pursue further outpatient evaluation with the primary care physician or other designated or consulting physician as outlined in the disch arge instructions. The patient and/or caregivers are agreeable to this plan of care and follow-up instructions have been explained in detail. The patient and/or caregivers have received these instruction. The patient/and or caregivers are aware that any significant change in condition or worsening of symptoms should prompt an immediate return to this or the closest emergency department or call 911.
[2021-10-17 23:21] VITALS: BP 93/64; PULSE 87
--- NOTE | 2021-10-18 08:50 | XRAY ---
Indication: Pain following trauma. Comparison: None 2 view left lower leg demonstrates mild proximal anterior soft tissue swelling, mild osteopenia, and tiny medial malleolus tip heterotopic ossification. No other bony, articular, or soft tissue abnormalities.
== END 2021-10-17 23:25 | disposition home or self-care (01) ==
LOC: ED 21:54
DX: S80.12XA Contusion of left lower leg, initial encounter (principal); W22.8XXA Striking against or struck by other objects, initial encounter; Y93.01 Activity, walking, marching and hiking; M79.662 Pain in left lower leg; E78.5 Hyperlipidemia, unspecified; Z72.0 Tobacco use; Z79.899 Other long term (current) drug therapy
CPT/HCPCS: 73590; 99282